=== PATIENT | male | born 1965 | race Caucasian/White ===

== ENCOUNTER 2024-06-13 06:08 | Day surgery (SDC) | payer OTHER ==
[2024-06-13] VITALS (10 sets, daily range): BP systolic 115–154; BP diastolic 72–99
[~2024-06-13] VITALS: Ht 170.2 cm; Wt 68.5 kg
[~2024-06-13 06:08] MED LIST: B-1100 M1 PO; DICL75ER PO; Dexamethasone Sod Phos 10 MG/ML 1ML VIAL ONE; ESCI10 PO; FOLI1 PO; FentaNYL Citrate 50 MCG/ML 5 ML Injection ONE; Ketorolac Tromethamine 30mg Vial ONE; LACT; MIRT30 PO; Ondansetron HCl 2 MG / ML 2ML Vial ONE; Prozac40 MG PO; Robaxin750 MG PO; Sugammadex Sodium 200 MG/2ML SDV (100 MG/ML) ONE; TRAZ50 PO; propofoL 20 ML IV ONE
[2024-06-13] MEDS ORDERED: Lactated Ringer's 1,000 ML IV SCH (06:15)
[2024-06-13] MEDS ORDERED: CeFAZolin Sodium 2,000 MG in NS 100 ML IV SCH (06:15)
[2024-06-13] MEDS ORDERED: ACET500 PO (06:24)
[2024-06-13] MEDS ORDERED: CeFAZolin Sodium 2,000 MG VIAL ONE (07:01)
--- NOTE | 2024-06-13 07:05 | NUR ---
History, Chart, Medications and Allergies reviewed before start of procedure. Patient confirms NPO status and agrees with scheduled surgery. Patient States Post-Procedure ride home has been arranged with , Marie, who is at bedside pre-op.
[2024-06-13] MEDS ORDERED: Bupivacaine 0.5% HCl 5 MG/ML 30MLVIAL ONE (07:08)
[2024-06-13] MEDS ORDERED: HYDROcodone 5-APAP 325 TAB PO PRN (09:05)
--- NOTE | 2024-06-13 10:15 | NUR ---
DISCHARGE NOTE PT A&OX4, BREATHING RA, TOLERATING PO INTAKE, AT BEDSIDE. PO PAIN MEDICATION GIVEN PER MD ORDERS- PT HAS NO OTHER COMPLAINTS. Patient up to Ambulate independently. Gait steady. Discharge instructions reviewed with patient. Patient verbalizes understanding. Copy given to patient to take home. Dressing to procedure site clean, dry, intact with no visible drainage, swelling, erythema or bruising noted. Discharged via wheelchair to private car for ride home.
== END 2024-06-13 10:10 | disposition home or self-care (01) ==
LOC: ORSCMMR 06:08 → ORD 07:30 → ORSCMMR 10:10
PROVIDERS: Surgery
PROC: 8E0W4CZ Robotic Assisted Procedure of Trunk Region, Percutaneous Endoscopic Approach (ICD-10-PCS; principal; 2024-06-13 07:30)
PROC: 0YU64JZ Supplement Left Inguinal Region with Synthetic Substitute, Percutaneous Endoscopic Approach (ICD-10-PCS; principal; 2024-06-13 07:30)
DX: K40.90 Unilateral inguinal hernia, without obstruction or gangrene, not specified as recurrent (principal); F32.A Depression, unspecified; Z79.899 Other long term (current) drug therapy; Z87.891 Personal history of nicotine dependence
CPT/HCPCS: A9270; C1781; J0690; J1100; J1885; J2405; J2704; J3010; J7120

== ENCOUNTER 2025-06-09 09:09 | Day surgery (SDC) | payer OTHER ==
[~2025-06-09] VITALS: Ht 170.2 cm; Wt 74.4 kg
[~2025-06-09 09:09] MED LIST changes: +ACET500 PO; -Dexamethasone Sod Phos 10 MG/ML 1ML VIAL ONE; -FentaNYL Citrate 50 MCG/ML 5 ML Injection ONE; -Ketorolac Tromethamine 30mg Vial ONE; -Sugammadex Sodium 200 MG/2ML SDV (100 MG/ML) ONE; -propofoL 20 ML IV ONE
[2025-06-09] MEDS ORDERED: CYCL10 PO (09:33)
[2025-06-09 09:49] VITALS: BP 112/85
--- NOTE | 2025-06-09 09:57 | NUR ---
Patient States Post-Procedure ride home has been arranged. Patient confirms NPO status and agrees with scheduled surgery. Patient states colon prep results clear. Pre-Op teaching done. Pt verbalizes understanding.Lung sounds dim to auscultation.
--- NOTE | 2025-06-09 10:00 | NUR ---
Attempted several times to scan patient armband, would not register on computer. Administered IVF per order of Dr gonzalez at 1000.
--- NOTE | 2025-06-09 10:15 | NUR ---
06/09/25 1015 Faith Syed CONFIRMED AND REVIEWED H&P, MEDCICATIONS, ALLERGIES, MEDICAL HISTORY, RESPIRATORY HISTORY, VITAL SIGNS, 3-LEAD EKG, CONSENTS, AND PHYSICIAN ORDERS. PATIENT CONFIRMS NPO STATUS AND AGREES WITH SCHEDULED PROCEDURE. MONITOR INTACT WITH CONTINUOUS PULSE OXIMETRY, CAPNOGRAPHY, 3-LEAD EKG, INTERMITTENT BP. SUPPLEMENTAL O2 TO BE TITRATED THROUGHOUT PROCEDURE TO MAINTAIN O2 SATURATION ABOVE 90%. PATIENT DETERMINED TO BE ASA APPROPRIATE FOR PROPOFOL SEDATION PRIOR TO START OF PROCEDURE BY DR. MILAN.
[2025-06-09 11:07] VITALS: BP 128/79
--- NOTE | 2025-06-09 11:28 | NUR ---
Discharge instructions reviewed with patient. Patient verbalizes understanding. Copy given to patient to take home.Tolerating po fluids.
== END 2025-06-09 23:21 | disposition home or self-care (01) ==
LOC: ORSCMMR 09:09 → ORD 10:15 → ORSCMMR 10:15
PROVIDERS: Surgery
PROC: 0DBL8ZX Excision of Transverse Colon, Via Natural or Artificial Opening Endoscopic, Diagnostic (ICD-10-PCS; principal; 2025-06-09 10:15)
DX: Z12.11 Encounter for screening for malignant neoplasm of colon (principal); K63.5 Polyp of colon; K64.8 Other hemorrhoids; R19.5 Other fecal abnormalities; E78.5 Hyperlipidemia, unspecified; F32.A Depression, unspecified; Z79.899 Other long term (current) drug therapy; Z87.891 Personal history of nicotine dependence
CPT/HCPCS: 88305; J2405; J2704; J7120